=== PATIENT | male | born 1955 | race African-American/Black ===

== ENCOUNTER 2017-03-22 06:52 | Emergency (ER) | payer MEDICAID ==
[~2017-03-22] VITALS: Ht 185.4 cm; Wt 78.0 kg
[~2017-03-22 06:52] MED LIST: ACET-2178 PO; ASPI-1159 PO; BIDIL PO; CARI350T27 PO; DIAZ10TA4 PO; POTA20TA82 PO; SPIR25TA4 PO
[2017-03-22 07:52] LABS: BASOPHILS % 1.3 % (0.0-2.0); EOSINOPHILS % 2.2 % (0.0-5.0); HEMATOCRIT. 42.2 % (42.0-52.0); HEMOGLOBIN. 14.2 g/dL (14.0-18.0); LYMPHOCYTES % 34.2 % (20.0-50.0); MEAN CORPUSCULAR HEMOGLOBIN 32.8 pg (28.0-32.0); MEAN CORPUSCULAR VOLUME 97.1 fL (80.0-94.0); MEAN PLATELET VOLUME 8.8 fl (7.4-10.4); MONOCYTES % 7.8 % (2.0-8.0); NEUTROPHILS % 54.5 % (40.0-76.0); PLATELET 158 x1000/uL (130-400); RED BLOOD CELL COUNT 4.35 mill/uL (4.7-6.1); RED CELL DISTRIBUTION WIDTH 15.3 % (11.6-14.6)
[2017-03-22 07:56] LABS: INR 1.1; PROTHROMBIN TIME 11.9 sec (9.4-11.6)
[2017-03-22 08:07] LABS: CARBON DIOXIDE 21 mEq/L (21-32); CHLORIDE 110 mEq/L (98-107)
[2017-03-22 08:10] LABS: TROPONIN I 0.08 ng/mL (0.00-0.04)
[2017-03-22 11:00] VITALS: BP 131/74
== END 2017-03-22 11:41 | disposition home or self-care (01) ==
LOC: ER 07:00
DX: J20.9 Acute bronchitis, unspecified (principal); I25.2 Old myocardial infarction; I50.9 Heart failure, unspecified; I25.10 Atherosclerotic heart disease of native coronary artery without angina pectoris; I42.9 Cardiomyopathy, unspecified; I11.0 Hypertensive heart disease with heart failure; Z79.82 Long term (current) use of aspirin; Z95.810 Presence of automatic (implantable) cardiac defibrillator
CPT/HCPCS: 36415; 71045; 80053; 83880; 84484; 85025; 85610; 93005; 99285; Z7610

== ENCOUNTER 2018-04-25 09:03 | Inpatient (IN) | payer MEDICAID ==
[~2018-04-25] VITALS: Ht 185.4 cm; Wt 73.1 kg
[~2018-04-25 09:03] MED LIST changes: +ATOR40TA70 PO; +BENA40TA9 PO; -BIDIL PO; +COR25 PO; +DEXT15LI PO; +FURO-151 PO; +ISOS1TAB PO; +PROM6.254 PO; +SERT50TA PO; -SPIR25TA4 PO; +SPIR25TA6 PO; +TRAZ-212 PO
[2018-04-25] MEDS ORDERED: ALBUTEROL (0.083%) 2.5MG/3ML NEB HHN STA (17:42)
[2018-04-25] MEDS ORDERED: BUMETANIDE 0.25MG/ML 2ML VIAL IV ONE (17:45)
[2018-04-25 18:13] LABS: BASOPHILS % 2.4 % (0.0-2.0); EOSINOPHILS % 5.6 % (0.0-5.0); HEMATOCRIT. 45.6 % (42.0-52.0); HEMOGLOBIN. 14.9 g/dL (14.0-18.0); LYMPHOCYTES % 41.9 % (20.0-50.0); MEAN CORPUSCULAR HEMOGLOBIN 31.4 pg (28.0-32.0); MEAN CORPUSCULAR VOLUME 96.2 fL (80.0-94.0); MEAN PLATELET VOLUME 8.7 fl (7.4-10.4); MONOCYTES % 5.4 % (2.0-8.0); NEUTROPHILS % 44.7 % (40.0-76.0); PLATELET 176 x1000/uL (130-400); RED BLOOD CELL COUNT 4.74 mill/uL (4.7-6.1); RED CELL DISTRIBUTION WIDTH 15.1 % (11.6-14.6)
[2018-04-25 18:18] LABS: CHLORIDE 110 mEq/L (98-107)
[2018-04-25 18:23] LABS: INR 1.2; PARTIAL THROMBOPLASTIN TIME 26.4 sec (23.4-31.0); PROTHROMBIN TIME 11.9 sec (9.1-11.1)
[2018-04-25] MEDS ORDERED: BUMETANIDE 1MG/4ML VIAL IV NR (18:30)
[2018-04-25] MEDS ORDERED: APIXABAN 2.5 MG TABLET PO SCH (19:15)
[2018-04-26] MEDS ORDERED: ALBUTEROL (0.083%) 2.5MG/3ML NEB HHN SCH (04:47)
[2018-04-26] MEDS ORDERED: FUROSEMIDE 40MG/4ML VIAL IVP SCH (05:00)
[2018-04-26] MEDS: CARVEDILOL 25MG TABLET PO SCH ×3 (05:04→21:08)
[2018-04-26] MEDS: ISOSORBIDE DINITRATE 20MG TABLET PO SCH ×3 (05:04→21:09)
[2018-04-26] MEDS: APIXABAN 5 MG TABLET PO SCH ×3 (05:04→16:51)
[2018-04-26 07:38] LABS: CHLORIDE 108 mEq/L (98-107)
[2018-04-26 12:20] VITALS: BP 98/75
[2018-04-26] MEDS: BENAZEPRIL 10MG TABLET PO SCH (12:30)
[2018-04-26] MEDS: POTASSIUM BICARB/CIT ACID 25 MEQ TABLET.EFF PO SCH (12:56)
[2018-04-26 13:11] VITALS: BP 98/75
[2018-04-26 16:00] VITALS: BP 117/88
[2018-04-26] MEDS: FUROSEMIDE 100MG/10ML VIAL IVP SCH (16:51)
[2018-04-26 20:00] VITALS: BP 118/76
[2018-04-26] MEDS: DIAZEPAM 5 MG TABLET PO SCH (21:08)
[2018-04-27] VITALS: BP 112/57
[2018-04-27 04:00] VITALS: BP 102/75
[2018-04-27] MEDS: FUROSEMIDE 100MG/10ML VIAL IVP SCH ×2 (06:18→17:15)
[2018-04-27 06:40] LABS: BASOPHILS % 1.2 % (0.0-2.0); EOSINOPHILS % 4.9 % (0.0-5.0); HEMATOCRIT. 39.9 % (42.0-52.0); HEMOGLOBIN. 13.2 g/dL (14.0-18.0); LYMPHOCYTES % 41.8 % (20.0-50.0); MEAN CORPUSCULAR HEMOGLOBIN 31.4 pg (28.0-32.0); MEAN CORPUSCULAR VOLUME 95.2 fL (80.0-94.0); MEAN PLATELET VOLUME 9.4 fl (7.4-10.4); MONOCYTES % 5.5 % (2.0-8.0); NEUTROPHILS % 46.6 % (40.0-76.0); PLATELET 152 x1000/uL (130-400); RED BLOOD CELL COUNT 4.19 mill/uL (4.7-6.1); RED CELL DISTRIBUTION WIDTH 14.7 % (11.6-14.6)
[2018-04-27 07:01] LABS: CHLORIDE 108 mEq/L (98-107)
[2018-04-27 08:00] VITALS: BP 111/83
[2018-04-27] MEDS: CARVEDILOL 25MG TABLET PO SCH ×2 (09:05→21:43)
[2018-04-27] MEDS: POTASSIUM BICARB/CIT ACID 25 MEQ TABLET.EFF PO SCH (09:05)
[2018-04-27] MEDS: APIXABAN 5 MG TABLET PO SCH ×2 (09:05→17:00)
[2018-04-27] MEDS: BENAZEPRIL 10MG TABLET PO SCH (09:05)
[2018-04-27] MEDS: ISOSORBIDE DINITRATE 20MG TABLET PO SCH ×2 (09:06→21:43)
[2018-04-27] MEDS ORDERED: ACETAMINOPHEN 325MG TABLET PO PRN ×2 (11:00)
[2018-04-27 12:00] VITALS: BP 99/64
[2018-04-27 16:00] VITALS: BP 104/81
[2018-04-27 20:00] VITALS: BP 121/83
[2018-04-27] MEDS: DIAZEPAM 5 MG TABLET PO SCH (21:43)
[2018-04-28] VITALS: BP 108/72
[2018-04-28 04:00] VITALS: BP 99/70
[2018-04-28] MEDS: FUROSEMIDE 100MG/10ML VIAL IVP SCH (06:46)
[2018-04-28 08:00] VITALS: BP 93/76
[2018-04-28 08:59] LABS: BASOPHILS % 1.8 % (0.0-2.0); EOSINOPHILS % 4.9 % (0.0-5.0); HEMATOCRIT. 42.2 % (42.0-52.0); HEMOGLOBIN. 13.9 g/dL (14.0-18.0); LYMPHOCYTES % 40.6 % (20.0-50.0); MEAN CORPUSCULAR HEMOGLOBIN 31.4 pg (28.0-32.0); MEAN CORPUSCULAR VOLUME 95.2 fL (80.0-94.0); MEAN PLATELET VOLUME 8.9 fl (7.4-10.4); MONOCYTES % 6.5 % (2.0-8.0); NEUTROPHILS % 46.2 % (40.0-76.0); PLATELET 171 x1000/uL (130-400); RED BLOOD CELL COUNT 4.43 mill/uL (4.7-6.1); RED CELL DISTRIBUTION WIDTH 14.9 % (11.6-14.6)
[2018-04-28] MEDS: CARVEDILOL 25MG TABLET PO SCH (09:00)
[2018-04-28] MEDS: ISOSORBIDE DINITRATE 20MG TABLET PO SCH (09:00)
[2018-04-28] MEDS: BENAZEPRIL 10MG TABLET PO SCH (09:00)
[2018-04-28 09:26] LABS: CHLORIDE 104 mEq/L (98-107)
[2018-04-28] MEDS: APIXABAN 5 MG TABLET PO SCH (09:49)
[2018-04-28] MEDS: POTASSIUM BICARB/CIT ACID 25 MEQ TABLET.EFF PO SCH (09:49)
== END 2018-04-28 11:25 | disposition left against medical advice (07) | DRG 194 ==
LOC: ER 09:25 → 7WST 18:39 → EDBEDREQ 18:43 → SUPCPDRO 04-26 09:16 → ENRESERV 04-26 10:16
PROVIDERS: ADMIT Internal Medicine Critical Care Medicine; ATTEND Internal Medicine Critical Care Medicine
DX: I11.0 Hypertensive heart disease with heart failure (principal); E87.8 Other disorders of electrolyte and fluid balance, not elsewhere classified; I42.0 Dilated cardiomyopathy; Z79.01 Long term (current) use of anticoagulants; I50.23 Acute on chronic systolic (congestive) heart failure; E78.5 Hyperlipidemia, unspecified; E87.6 Hypokalemia; I34.0 Nonrheumatic mitral (valve) insufficiency; D72.819 Decreased white blood cell count, unspecified; E78.00 Pure hypercholesterolemia, unspecified; F17.200 Nicotine dependence, unspecified, uncomplicated; G89.29 Other chronic pain; I25.2 Old myocardial infarction; Z79.899 Other long term (current) drug therapy; Z82.49 Family history of ischemic heart disease and other diseases of the circulatory system; Z86.711 Personal history of pulmonary embolism; Z91.14 Patient's other noncompliance with medication regimen; Z95.810 Presence of automatic (implantable) cardiac defibrillator
CPT/HCPCS: 36415; 71045; 80048; 83735; 83880; 84484; 93005; 93306; 94640; 96374; 99285; J1940; J3490; J7611

== ENCOUNTER 2018-07-06 01:54 | Emergency (ER) | payer MEDICAID ==
[~2018-07-06] VITALS: Ht 185.4 cm; Wt 73.0 kg
[2018-07-06 05:16] VITALS: BP 103/77
== END 2018-07-06 05:25 | disposition home or self-care (01) ==
LOC: ER 01:54
DX: M10.9 Gout, unspecified (principal); R60.9 Edema, unspecified; I11.0 Hypertensive heart disease with heart failure; I50.9 Heart failure, unspecified; E78.00 Pure hypercholesterolemia, unspecified; Z79.82 Long term (current) use of aspirin; Z79.899 Other long term (current) drug therapy
CPT/HCPCS: 99283

== ENCOUNTER 2018-09-13 17:24 | Inpatient (IN) | payer MEDICAID ==
[~2018-09-13] VITALS: Ht 185.4 cm; Wt 83.5 kg
[~2018-09-13 17:24] MED LIST changes: -ACET-2178 PO; -ASPI-1159 PO; +ASPI-1393 PO; -ATOR40TA70 PO; -BENA40TA9 PO; -CARI350T27 PO; -COR25 PO; -DEXT15LI PO; -DIAZ10TA4 PO; -ISOS1TAB PO; +METO10TA8 PO; -POTA20TA82 PO; -PROM6.254 PO; -SERT50TA PO; -TRAZ-212 PO
[2018-09-13] MEDS ORDERED: VANCOMYCIN 1 G PREMIX 200 ML IV SCH (17:45)
[2018-09-13] MEDS ORDERED: SODIUM CHLORIDE 0.9% 1000ML BAG (SEPSIS BOLUS) IV ONE (17:45)
[2018-09-13] MEDS ORDERED: LEVOFLOXACIN 750MG PREMIX 150 ML IV ONE (17:45)
[2018-09-13] MEDS ORDERED: MORPHINE SULFATE 2 MG/ML CPJ (NOT FOR IM USE) IV ONE (18:00)
[2018-09-13 18:16] LABS: CHLORIDE 94 mEq/L (98-107)
[2018-09-13 18:16] LABS: BG BASE EXCESS -2.4 mmol/L (-2.0-2.0); BG CARBOXYHEMOGLOBIN 1.6 % (0.5-1.5); BG FRACTION INSPIRED OXYGEN 21; BG HCO3 ACT 17.8 mmol/L (22.0-26.0); BG METHEMOGLOBIN 0.5 % (0.0-1.5); BG OXYHEMOGLOBIN 96.9 % (94.0-97.0); BG PCO2 17.2 mmHg (35.0-45.0); BG PH 7.633 (7.350-7.450); BG PO2 160.6 mmHg (75.0-100.0); BG SAMPLE SITE RIGHT RADIAL; BG TOTAL HEMOGLOBIN 7.5 g/dL (12.0-18.0); BG VENT MODE ROOM AIR
[2018-09-13 18:19] LABS: INR 2.2; PARTIAL THROMBOPLASTIN TIME 40.5 sec (23.4-31.0); PROTHROMBIN TIME 21.7 sec (9.6-11.0)
[2018-09-13] MEDS ORDERED: METRONIDAZOLE 500 MG PREMIX 100 ML IV ONE (19:15)
[2018-09-13 19:31] LABS: BASOPHILS % 0.2 % (0.0-2.0); EOSINOPHILS % 0.2 % (0.0-5.0); LYMPHOCYTES % 11.9 % (20.0-50.0); MEAN CORPUSCULAR HEMOGLOBIN 24.9 pg (28.0-32.0); MEAN CORPUSCULAR VOLUME 78.6 fL (80.0-94.0); MONOCYTES % 6.4 % (2.0-8.0); NEUTROPHILS % 81.3 % (40.0-76.0); RED BLOOD CELL COUNT 2.75 mill/uL (4.7-6.1); RED CELL DISTRIBUTION WIDTH 22.4 % (11.6-14.6)
[2018-09-13 19:36] LABS: HEMATOCRIT. 21.6 % (42.0-52.0); HEMOGLOBIN. 6.8 g/dL (14.0-18.0)
[2018-09-13] MEDS ORDERED: SODIUM CHLORIDE 0.9% 1,000 ML IV ONE ×3 (19:49)
[2018-09-13 19:54] LABS: PLATELET ESTIMATE DECREASED
[2018-09-13] MEDS ORDERED: NOREPINEPHRINE 4 MG in DEXT 5% WATER 246 ML IV ONE (20:30)
[2018-09-13] MEDS ORDERED: SODIUM CHLORIDE 0.9% 1,000 ML IV SCH (20:38)
[2018-09-13] MEDS ORDERED: EPINEPHRINE 1 MG in SODIUM CHLORIDE 0.9% 249 ML IV PRN (20:45)
[2018-09-13] MEDS ORDERED: ALBUMIN HUMAN 25GM/500ML (5%) IV ONE (20:45)
[2018-09-13] MEDS ORDERED: ONDANSETRON HCL 4MG/2ML INJ IV PRN ×2 (20:45→21:00)
[2018-09-13] MEDS ORDERED: IPRATROPIUM/ALBUTEROL 0.5-3(2.5)MG/3ML NEB INH PRN ×2 (20:45→21:00)
[2018-09-13] MEDS ORDERED: FLUCONAZOLE/NS(NEO) 2MG/ML IVPB IV SCH (20:45)
[2018-09-13] MEDS ORDERED: PIPERACILLIN/TAZ 3.375G PREMIX 50 ML IV SCH ×3 (20:45→22:00)
[2018-09-13 21:08] LABS: MEAN PLATELET VOLUME 9.8 fl (7.4-10.4); PLATELET 52 x1000/uL (130-400)
[2018-09-13] MEDS ORDERED: MIDAZOLAM HCL 2 MG/2 ML VIAL ONE (21:15)
[2018-09-13] MEDS ORDERED: ROCURONIUM BROMIDE 10MG/ML VIAL 5ML IV ONE (21:15)
[2018-09-13] MEDS ORDERED: FENTANYL CITRATE/PF 50MCG/ML 2ML VIAL ONE (21:15)
[2018-09-13] MEDS ORDERED: NOREPINEPHRINE 4MG/250ML PMX 250 ML IV NR (21:15)
[2018-09-13] MEDS ORDERED: PHENYLEPHRINE HCL 10 MG/ML 1ML (IV VIAL) IV ONE (21:16)
[2018-09-13] MEDS ORDERED: EPHEDRINE SULFATE 50MG/ML VIAL ONE (21:16)
[2018-09-13] MEDS ORDERED: DIATR MEGLU/DIATRIZOATE SOLN 30ML ONE (21:18)
[2018-09-13] MEDS ORDERED: DIATR MEGLU/DIATRIZOATE SOLN 120ML ONE (21:19)
[2018-09-13] MEDS ORDERED: BUPIVACAINE HCL/PF 0.5% (5MG/ML) 10ML ONE (21:36)
[2018-09-13] MEDS ORDERED: PHYTONADIONE 10 MG in DEXTROSE 5% WATER 50 ML IV ONE (22:00)
[2018-09-14] VITALS (98 sets, daily range): BP systolic 78–112; BP diastolic 37–90
[2018-09-14 00:40] LABS: CLARITY URINE CLEAR (CLEAR); COLOR URINE YELLOW (YELLOW); KETONES URINE NEGATIVE (NEGATIVE); LEUKOCYTE ESTERASE URINE NEGATIVE (NEGATIVE); NITRITE URINE NEGATIVE (NEGATIVE); OCCULT BLOOD URINE NEGATIVE (NEGATIVE); PROTEIN URINE NEGATIVE (NEGATIVE); SPECIFIC GRAVITY URINE 1.013 (1.005-1.030)
[2018-09-14] MEDS: FLUCONAZOLE 200 MG/100ML BAG 100 ML IV SCH ×2 (00:40→21:35)
[2018-09-14] MEDS: PANTOPRAZOLE SODIUM 40 MG/VIAL IV SCH ×2 (02:28→09:37)
[2018-09-14] MEDS: SODIUM CHLORIDE 0.9% 1,000 ML IV SCH ×5 (02:28→20:52)
[2018-09-14] MEDS: IRON SUCROSE COMPLEX 100 MG/5 ML ML IV SCH (02:29)
[2018-09-14] MEDS: EPOETIN ALFA 10000UNITS/ML VIAL SUBCUT SCH (02:43)
[2018-09-14] MEDS: METRONIDAZOLE 500 MG PREMIX 100 ML IV SCH ×3 (06:17→22:57)
[2018-09-14 09:18] LABS: MEAN CORPUSCULAR HEMOGLOBIN 25.4 pg (28.0-32.0); MEAN CORPUSCULAR VOLUME 77.9 fL (80.0-94.0); RED BLOOD CELL COUNT 2.64 mill/uL (4.7-6.1); RED CELL DISTRIBUTION WIDTH 22.4 % (11.6-14.6)
[2018-09-14 09:22] LABS: CHLORIDE 103 mEq/L (98-107)
[2018-09-14 09:24] LABS: HEMATOCRIT. 20.6 % (42.0-52.0); HEMOGLOBIN. 6.7 g/dL (14.0-18.0)
[2018-09-14] MEDS: NOREPINEPHRINE 4 MG in DEXT 5% WATER 246 ML IV PRN ×2 (09:37→18:53)
[2018-09-14] MEDS ORDERED: PHYTONADIONE 10MG/ML AMP SUBCUT SCH (10:45)
[2018-09-14 12:16] LABS: PLATELET 54 x1000/uL (130-400)
[2018-09-14 12:35] LABS: NUCLEATED RED BLOOD CELLS 6 /100 WBC; PLATELET ESTIMATE MARKEDLY DECREASED
[2018-09-14] MEDS ORDERED: PNEUMOCOCCAL 23-VAL P-SAC VAC 0.5 ML IM ONE (13:30)
[2018-09-14] MEDS: LEVOFLOXACIN 500MG PREMIX 100 ML IV SCH (16:45)
[2018-09-14] MEDS ORDERED: SODIUM CHLORIDE 0.9% 1,000 ML IV NR (17:23)
[2018-09-15] VITALS (97 sets, daily range): BP systolic 67–119; BP diastolic 34–94
[2018-09-15] MEDS: IRON SUCROSE COMPLEX 100 MG/5 ML ML IV SCH (00:32)
[2018-09-15] MEDS: NOREPINEPHRINE 4 MG in DEXT 5% WATER 246 ML IV PRN ×2 (00:51→03:11)
[2018-09-15] MEDS ORDERED: SODIUM CHLORIDE 0.9% 1,000 ML IV ONE ×4 (02:45→07:00)
[2018-09-15] MEDS ORDERED: NOREPINEPHRINE 8 MG in DEXT 5% WATER 492 ML IV PRN (03:30)
[2018-09-15] MEDS ORDERED: ALBUMIN HUMAN 25GM/500ML (5%) IV SCH (03:30)
[2018-09-15] MEDS: METRONIDAZOLE 500 MG PREMIX 100 ML IV SCH ×3 (05:05→21:04)
[2018-09-15] MEDS: SODIUM CHLORIDE 0.9% 1,000 ML IV SCH (05:08)
[2018-09-15 05:33] LABS: CHLORIDE 108 mEq/L (98-107)
[2018-09-15] MEDS: NOREPINEPHRINE 8 MG in DEXT 5% WATER 492 ML IV PRN ×2 (05:35→10:44)
[2018-09-15 05:45] LABS: BASOPHILS % 0.1 % (0.0-2.0); LYMPHOCYTES % 8.8 % (20.0-50.0); MEAN CORPUSCULAR HEMOGLOBIN 25.6 pg (28.0-32.0); MEAN CORPUSCULAR VOLUME 77.9 fL (80.0-94.0); MEAN PLATELET VOLUME 10.8 fl (7.4-10.4); MONOCYTES % 4.9 % (2.0-8.0); NEUTROPHILS % 86.2 % (40.0-76.0); PLATELET 62 x1000/uL (130-400); RED BLOOD CELL COUNT 2.28 mill/uL (4.7-6.1); RED CELL DISTRIBUTION WIDTH 22.4 % (11.6-14.6)
[2018-09-15 06:06] LABS: HEMATOCRIT. 17.7 % (42.0-52.0); HEMOGLOBIN. 5.8 g/dL (14.0-18.0)
[2018-09-15] MEDS ORDERED: KCL 20MEQ/100ML PREMIX 100 ML IV SCH (08:00)
[2018-09-15] MEDS: PANTOPRAZOLE SODIUM 40 MG/VIAL IV SCH (08:20)
[2018-09-15] MEDS ORDERED: PHENYLEPHRINE 40 MG in DEXT 5% WATER 246 ML IV PRN (13:45)
[2018-09-15] MEDS ORDERED: FUROSEMIDE 40MG/4ML VIAL IVP NR (13:45)
[2018-09-15] MEDS: ACETAMINOPHEN 325MG TABLET PO PRN (14:12)
[2018-09-15] MEDS ORDERED: ACETAMINOPHEN 325MG TABLET PO SCH (14:15)
[2018-09-15] MEDS: LEVOFLOXACIN 500MG PREMIX 100 ML IV SCH (17:26)
[2018-09-15] MEDS: FLUCONAZOLE 200 MG/100ML BAG 100 ML IV SCH (21:04)
[2018-09-15] MEDS: EPOETIN ALFA 10000UNITS/ML VIAL SUBCUT SCH (21:05)
[2018-09-16] VITALS (96 sets, daily range): BP systolic 36–127; BP diastolic 15–97
[2018-09-16] MEDS: IRON SUCROSE COMPLEX 100 MG/5 ML ML IV SCH ×2 (00:46→23:19)
[2018-09-16] MEDS: NOREPINEPHRINE 8 MG in DEXT 5% WATER 492 ML IV PRN ×3 (00:47→18:42)
[2018-09-16] MEDS: ACETAMINOPHEN 325MG TABLET PO PRN ×4 (02:15→23:13)
[2018-09-16 05:20] LABS: MEAN CORPUSCULAR HEMOGLOBIN 25.7 pg (28.0-32.0); MEAN CORPUSCULAR VOLUME 80.5 fL (80.0-94.0); MEAN PLATELET VOLUME 11.3 fl (7.4-10.4); PLATELET 62 x1000/uL (130-400); RED BLOOD CELL COUNT 2.35 mill/uL (4.7-6.1)
[2018-09-16 05:33] LABS: CHLORIDE 106 mEq/L (98-107)
[2018-09-16] MEDS: METRONIDAZOLE 500 MG PREMIX 100 ML IV SCH ×3 (05:33→21:08)
[2018-09-16 05:50] LABS: HEMATOCRIT. 18.9 % (42.0-52.0)
[2018-09-16] MEDS: DEXTROSE 50% WATER 50ML SYRINGE IV PRN ×2 (06:50→07:48)
[2018-09-16] MEDS ORDERED: SODIUM BICARBONATE 8.4% 1 MEQ/ML 50ML SYR IV NR (07:15)
[2018-09-16] MEDS ORDERED: DEXTROSE 10% WATER 1,000 ML IV SCH (07:30)
[2018-09-16] MEDS: DEXT 10% WATER 1,000 ML IV SCH (07:49)
[2018-09-16] MEDS ORDERED: BLOOD SUGAR DIAGNOSTIC STRIP TEST SCH (08:00)
[2018-09-16] MEDS: PANTOPRAZOLE SODIUM 40 MG/VIAL IV SCH (09:23)
[2018-09-16 12:15] LABS: INR 2.7; PROTHROMBIN TIME 26.3 sec (9.6-11.0)
[2018-09-16 12:40] LABS: NUCLEATED RED BLOOD CELLS 26 /100 WBC; PLATELET ESTIMATE DECREASED
[2018-09-16] MEDS: BLOOD SUGAR DIAGNOSTIC STRIP TEST SCH ×2 (12:50→17:37)
[2018-09-16] MEDS: LEVOFLOXACIN 500MG PREMIX 100 ML IV SCH (15:41)
[2018-09-16] MEDS ORDERED: PHYTONADIONE 10MG/ML AMP SUBCUT NR (20:30)
[2018-09-16] MEDS ORDERED: ALBUMIN HUMAN 25GM/500ML (5%) IV NR (21:00)
[2018-09-16] MEDS: FLUCONAZOLE 200 MG/100ML BAG 100 ML IV SCH (21:08)
[2018-09-17] VITALS (95 sets, daily range): BP systolic 65–142; BP diastolic 38–105
[2018-09-17] MEDS: BLOOD SUGAR DIAGNOSTIC STRIP TEST SCH ×5 (00:06→23:42)
[2018-09-17] MEDS: NOREPINEPHRINE 16 MG in DEXT 5% WATER 234 ML IV PRN ×2 (02:15→14:24)
[2018-09-17 05:12] LABS: MEAN CORPUSCULAR HEMOGLOBIN 25.8 pg (28.0-32.0); MEAN CORPUSCULAR VOLUME 80.5 fL (80.0-94.0); MEAN PLATELET VOLUME 11.4 fl (7.4-10.4); PLATELET 71 x1000/uL (130-400); RED BLOOD CELL COUNT 2.37 mill/uL (4.7-6.1); RED CELL DISTRIBUTION WIDTH 22.7 % (11.6-14.6)
[2018-09-17 05:17] LABS: CHLORIDE 106 mEq/L (98-107)
[2018-09-17 05:21] LABS: INR 2.7; PROTHROMBIN TIME 26.9 sec (9.6-11.0)
[2018-09-17] MEDS: METRONIDAZOLE 500 MG PREMIX 100 ML IV SCH ×3 (05:23→21:42)
[2018-09-17] MEDS: DEXTROSE 50% WATER 50ML SYRINGE IV PRN (05:24)
[2018-09-17 05:46] LABS: HEMATOCRIT. 19.1 % (42.0-52.0); HEMOGLOBIN. 6.1 g/dL (14.0-18.0)
[2018-09-17] MEDS: DEXT 10% WATER 1,000 ML IV SCH (07:34)
[2018-09-17] MEDS: PANTOPRAZOLE SODIUM 40 MG/VIAL IV SCH (09:03)
[2018-09-17] MEDS: MIDODRINE HCL 5MG TABLET PO SCH ×3 (09:51→17:00)
[2018-09-17 10:18] LABS: NUCLEATED RED BLOOD CELLS 148 /100 WBC; PLATELET ESTIMATE DECREASED
[2018-09-17] MEDS ORDERED: ALBUMIN HUMAN 25GM/500ML (5%) IV SCH (11:00)
[2018-09-17] MEDS: ACETAMINOPHEN 325MG TABLET PO PRN (14:22)
[2018-09-17] MEDS: LEVOFLOXACIN 500MG PREMIX 100 ML IV SCH (16:00)
[2018-09-17] MEDS: EPOETIN ALFA 10000UNITS/ML VIAL SUBCUT SCH (21:00)
[2018-09-17] MEDS: FLUCONAZOLE 200 MG/100ML BAG 100 ML IV SCH (22:39)
[2018-09-17] MEDS: IRON SUCROSE COMPLEX 100 MG/5 ML ML IV SCH (23:42)
[2018-09-18] VITALS (34 sets, daily range): BP systolic 74–101; BP diastolic 24–73
[2018-09-18 05:11] LABS: CHLORIDE 104 mEq/L (98-107)
[2018-09-18 05:13] LABS: MEAN CORPUSCULAR HEMOGLOBIN 26.1 pg (28.0-32.0); MEAN CORPUSCULAR VOLUME 81.6 fL (80.0-94.0); PLATELET 72 x1000/uL (130-400); RED BLOOD CELL COUNT 2.23 mill/uL (4.7-6.1); RED CELL DISTRIBUTION WIDTH 22.5 % (11.6-14.6)
[2018-09-18 05:31] LABS: HEMOGLOBIN 5.8 g/dL (14.0-18.0)
[2018-09-18] MEDS: BLOOD SUGAR DIAGNOSTIC STRIP TEST SCH ×4 (05:31→23:48)
[2018-09-18 05:32] LABS: HEMATOCRIT 18.2 % (42.0-52.0)
[2018-09-18] MEDS: NOREPINEPHRINE 16 MG in DEXT 5% WATER 234 ML IV PRN ×2 (05:32→20:01)
[2018-09-18] MEDS: METRONIDAZOLE 500 MG PREMIX 100 ML IV SCH ×3 (05:41→22:13)
[2018-09-18] MEDS ORDERED: MIDODRINE HCL 5MG TABLET PO SCH (09:00)
[2018-09-18] MEDS: ACETAMINOPHEN 325MG TABLET PO PRN (09:10)
[2018-09-18] MEDS: PANTOPRAZOLE SODIUM 40 MG/VIAL IV SCH (09:11)
[2018-09-18] MEDS: MIDODRINE HCL 5MG TABLET PO SCH ×3 (09:11→17:00)
[2018-09-18] MEDS: DEXT 10% WATER 1,000 ML IV SCH (09:11)
[2018-09-18] MEDS: LEVOFLOXACIN 500MG PREMIX 100 ML IV SCH (16:00)
[2018-09-18] MEDS ORDERED: MORPHINE SULFATE 2 MG/ML CPJ (NOT FOR IM USE) IV PRN (17:45)
[2018-09-18] MEDS: FLUCONAZOLE 200 MG/100ML BAG 100 ML IV SCH (21:01)
[2018-09-18] MEDS: MORPHINE SULFATE 2 MG/ML CPJ (NOT FOR IM USE) IV PRN (22:16)
[2018-09-19] VITALS (65 sets, daily range): BP systolic 60–113; BP diastolic 24–69
[2018-09-19] MEDS: METRONIDAZOLE 500 MG PREMIX 100 ML IV SCH ×2 (05:32→14:28)
[2018-09-19] MEDS: BLOOD SUGAR DIAGNOSTIC STRIP TEST SCH ×2 (06:00→12:54)
[2018-09-19] MEDS: NOREPINEPHRINE 16 MG in DEXT 5% WATER 234 ML IV PRN (06:46)
[2018-09-19] MEDS: MORPHINE SULFATE 2 MG/ML CPJ (NOT FOR IM USE) IV PRN ×2 (07:29→15:37)
[2018-09-19] MEDS: PANTOPRAZOLE SODIUM 40 MG/VIAL IV SCH (08:25)
[2018-09-19] MEDS: MIDODRINE HCL 5MG TABLET PO SCH ×3 (08:26→13:03)
[2018-09-19] MEDS: DEXTROSE 50% WATER 50ML SYRINGE IV PRN (12:19)
== END 2018-09-19 16:15 | disposition hospice, home (50) | DRG 720 ==
LOC: ER 17:24 → MICUSO 19:42 → EDBEDREQTM 19:50 → EDBEDREQ 19:50 → ENRESERV 09-14 00:04
PROVIDERS: ADMIT Ophthalmology; ATTEND Ophthalmology
PROC: 06HY33Z Insertion of Infusion Device into Lower Vein, Percutaneous Approach (ICD-10-PCS; principal; 2018-09-13)
DX: A41.9 Sepsis, unspecified organism (principal); D65 Disseminated intravascular coagulation [defibrination syndrome]; K25.6 Chronic or unspecified gastric ulcer with both hemorrhage and perforation; E43 Unspecified severe protein-calorie malnutrition; R57.1 Hypovolemic shock; R65.21 Severe sepsis with septic shock; I27.21 Secondary pulmonary arterial hypertension; K66.8 Other specified disorders of peritoneum; K26.6 Chronic or unspecified duodenal ulcer with both hemorrhage and perforation; I11.0 Hypertensive heart disease with heart failure; I50.20 Unspecified systolic (congestive) heart failure; I42.0 Dilated cardiomyopathy; I48.2 Chronic atrial fibrillation; G89.29 Other chronic pain; D50.9 Iron deficiency anemia, unspecified; I34.0 Nonrheumatic mitral (valve) insufficiency; E78.5 Hyperlipidemia, unspecified; E16.2 Hypoglycemia, unspecified; Z66 Do not resuscitate; Z51.5 Encounter for palliative care; K74.60 Unspecified cirrhosis of liver; J44.9 Chronic obstructive pulmonary disease, unspecified; Z79.01 Long term (current) use of anticoagulants; Z86.711 Personal history of pulmonary embolism; Z86.73 Personal history of transient ischemic attack (TIA), and cerebral infarction without residual deficits; Z88.0 Allergy status to penicillin; Z95.810 Presence of automatic (implantable) cardiac defibrillator; Z88.5 Allergy status to narcotic agent; Z68.24 Body mass index [BMI] 24.0-24.9, adult; Z82.49 Family history of ischemic heart disease and other diseases of the circulatory system
CPT/HCPCS: 36415; 36600; 71045; 74176; 80048; 82375; 82805; 82962; 83605; 83735; 83880; 84145; 84484; 85027; 86850; 86900; 86920; 93005; 93306; 96361; 96365; 99285; C9113; J0885; J1450; J1940; J1956; J2250; J2270; J2370; J3010; J3370; J3430; J3480; J3490; J7030; J7050; J7060; P9041; Q9963; A4315